=== PATIENT | female | born 1985 | race Caucasian/White ===

== ENCOUNTER 2022-01-09 13:54 | Emergency (ER) | payer OTHER ==
[~2022-01-09] VITALS: Ht 185.4 cm; Wt 67.6 kg
--- NOTE | 2022-01-09 14:00 | NUR ---
MD at bedside, medical screening exam in progress.
[2022-01-09] MEDS ORDERED: LIDOCAINE 1%-EPI 1:100,000 20 ML VIAL ONE (14:12)
[2022-01-09] MEDS ORDERED: LIDOCAINE HCL 1% 20 ML VIAL ONE (14:13)
[2022-01-09] MEDS ORDERED: LIDOCAINE HCL 1% 20 ML VIAL IJ ONE (14:15)
--- NOTE | 2022-01-09 15:00 | NUR ---
Patient discharged to home in stable condition. Written and verbal after care instructions given. Patient verbalizes understanding of instructions. Stressed follow up or return to ER for worsening s/s.
[2022-01-09 15:25] VITALS: BP 125/70
== END 2022-01-09 15:26 | disposition home or self-care (01) ==
LOC: ER 13:54
DX: S01.511A Laceration without foreign body of lip, initial encounter (principal); W25.XXXA Contact with sharp glass, initial encounter; Y92.89 Other specified places as the place of occurrence of the external cause; Z88.0 Allergy status to penicillin
CPT/HCPCS: 12011; 99282; J3490; A4663